=== PATIENT | female | born 1960 | race Caucasian/White ===

== ENCOUNTER 2018-02-19 06:17 | Observation (INO) | payer OTHER ==
[~2018-02-19] VITALS: Ht 165.1 cm; Wt 117.6 kg
[~2018-02-19 06:17] MED LIST: BUPR150T3 PO; CREON24 PO; CYCL10TA PO; GLIM1TAB PO; LABE100T2 PO; LISI40TA PO; METF500T4 PO; METO5TAB PO; PANT40TA3 PO; PRAV40TA2 PO; SERT-129 PO; SPIR25TA3 PO
[2018-02-19] MEDS ORDERED: METOPROLOL TARTRATE 25 MG TAB PO PRN (06:45)
[2018-02-19] MEDS ORDERED: CHLORHEXIDINE GLUCONATE 2 % 1 PACK (2 CLOTHS) TOPICAL PRN (06:45)
[2018-02-19] MEDS ORDERED: POVIDONE IODINE 5% (ANTISEPSIS KIT) 4 APPLICATIONS EACH NARE PRN (06:45)
[2018-02-19] MEDS ORDERED: LACTATED RINGER'S 1000 ML IV PRN (06:45)
[2018-02-19] MEDS ORDERED: SODIUM CHLORID 0.9% 500 ML IV PRN (06:45)
[2018-02-19] MEDS ORDERED: VANCOMYCIN 1 GM/200 ML PREMIX IV SCH (07:00)
[2018-02-19] MEDS ORDERED: GENTAMICIN SULFATE 80 MG/2 ML VIAL ONE (07:01)
[2018-02-19] MEDS ORDERED: THROMBIN (TOPICAL) 5,000 UNIT VIAL ONE (07:01)
[2018-02-19] MEDS ORDERED: GELFOAM SIZE 100 ONE (07:01)
[2018-02-19] MEDS ORDERED: APREPITANT 40 MG CAP ONE (07:10)
[2018-02-19] MEDS ORDERED: ACETAMINOPHEN 1000 MG/100 ML 100 ML IV ONE (07:13)
[2018-02-19] MEDS ORDERED: ARTIFICIAL TEARS OPTH OINT 3.5 APPLIC/3.5 GM TUBO ONE (07:13)
[2018-02-19] MEDS ORDERED: PROPOFOL 500 MG/50 ML INJ 150 ML ONE (07:13)
[2018-02-19] MEDS ORDERED: ceFAZolin 2 GM PREMIX 50 ML ONE (09:37)
[2018-02-19] MEDS ORDERED: MORPHINE SULFATE 4 MG/ML INJ IV PUSH PRN ×2 (11:15)
[2018-02-19] MEDS ORDERED: MAGNESIUM HYDROXIDE SUSP 30 ML CUP PO PRN (11:15)
[2018-02-19] MEDS ORDERED: ONDANSETRON ODT 4 MG TAB PO PRN (11:15)
[2018-02-19] MEDS ORDERED: RESP: ALBUTEROL 2.5 MG/3 ML NEB (PRN) INH (11:15)
[2018-02-19] MEDS ORDERED: MENTHOL LOZENGE BUCCAL PRN (11:15)
[2018-02-19] MEDS ORDERED: ACETAMINOPHEN 325 MG TAB PO PRN (11:15)
[2018-02-19] MEDS ORDERED: ACETAMINOPHEN/HYDROcodone 325 MG/10 MG TAB PO PRN (11:15)
[2018-02-19] MEDS ORDERED: cloNIDine HCL 0.1 MG TAB PO/NG PRN (11:15)
[2018-02-19] MEDS ORDERED: DEXAMETHASONE SOD PHOS 4 MG/ML VIAL IV ONE (12:00)
[2018-02-19] MEDS ORDERED: ROCURONIUM INJ 50 MG/5 ML SYRINGE IV PUSH ONE (12:00)
[2018-02-19] MEDS ORDERED: ePHEDrine/NS 25 MG/5 ML SYRINGE IV ONE (12:00)
[2018-02-19] MEDS ORDERED: PROPOFOL 200 MG/20 ML AMP IV ONE (12:00)
[2018-02-19] MEDS ORDERED: ONDANSETRON HCL 4 MG/2 ML VIAL IV ONE (12:00)
[2018-02-19] MEDS ORDERED: LIDOCAINE HCL 1% PF 5 ML SYRINGE OTHER ONE (12:00)
[2018-02-19] MEDS ORDERED: LACTATED RINGER'S 1000 ML INJ 2,000 ML IV ONE (12:00)
[2018-02-19] MEDS ORDERED: DO NOT ADM ANY ANTICOAGULANT DRUGS PRN (12:19)
[2018-02-19] MEDS ORDERED: HYDR-3583 PO (12:20)
[2018-02-19] MEDS: SODIUM CHLOR 0.9% 1000 ML INJ 1,000 ML IV SCH ×2 (12:30→21:13)
[2018-02-19] MEDS ORDERED: DEXTROSE 50% IN WATER 50 ML VIAL(D50) IV PUSH PRN (12:30)
[2018-02-19] MEDS ORDERED: GLUCAGON 1 MG/ML VIAL OTHER PRN (12:30)
[2018-02-19] MEDS ORDERED: MIDAZOLAM HCL 2 MG/2 ML VIAL ONE (12:46)
[2018-02-19] MEDS ORDERED: *morphine SULFATE 4 MG/ML PERIprocedure ONLY ONE (12:57)
--- NOTE | 2018-02-19 13:07 | PD.OP ---
Operative Report Date of Surgery: Feb 19, 2018 Preoperative Diagnosis: Cervical Spinal; Stenosis Postoperative Diagnosis: Cervical Spinal; Stenosis Procedure: C5-6 anterior cervical discectomy, interbody arthodhesis using PEEK cage filled with autologous bone graft, Simplicity plate and screws Anesthesia: general Surgeon: West Trammell Unemployment Insurance Hearing Officer(s): Vita Pierce Operation and Findings: INDICATIONS FOR THE PROCEDURE Ms Toledo is a 57 year-old female who presented with intractable neck pain and clinical evidence of C6 upper extremity radiculopathy. The patient has failed maximum nonsurgical management including multiple modalities of conservative treatment as well as pain management interventions by an interventional pain specialist. A surgical decompression and arthrodhesis were indicated. The [id number] details of the procedure, indications, alternatives, risks and potential complications were fully discussed with the patient. The patient fully understood. All The questions were answered. No guarantees were given. The patient voiced requesting the procedure and provided informed consents. The patient was offered the alternative of delaying the procedure and continuing with nonsurgical management. DETAILS OF THE SURGICAL PROCEDURE After the induction of general anesthesia, endotracheal intubation was performed. A Subramanian catheter, bilateral DEBORAH hose, and sequential compression devices were placed and kept throughout the procedure. The patient was positioned supine on a Lam table with the head over a gel doughnut. All pressure points were carefully padded with egg crate mattress. The eyes were tapped shut after ointment was applied by the anesthesiologist to prevent corneal abrasion. A Laurence hugger was placed over the exposed lower body to maintain control of the core body temperature. The electrophysiological team placed the needles and electrodes in their proper location and baseline SSEP's and motor evoked potentials were registered. The anterior cervical region was prepped and draped in the usual sterile fashion. A localizing x-ray was performed with a C-arm. The surgical procedure was performed in several steps as follow: SURGICAL APPROACH A skin incision was made along the middle cervical crease with a #10 blade. The dissection was carried out through the platysma exposing the sternocleidomastoid muscle. The cervical spine was approached following the fascial layers of the neck just medial to the anterior border of the sternocleidomastoid and carotid sheath by a combination of sharp and dull dissection. The omohyoid muscle was identified and carefully dissected laterally and the deep cervical fascia was carefully opened. The longus colli muscles were retracted to each side of the midline. A marker was placed at the disc space C5-6 and a cross-table lateral x-ray performed with a C-arm. SURGICAL DECOMPRESSION In order to decompress the anterior surface of the spinal cord it was necessary to preform a microsurgical resection of the disk. At this point in the procedure the operating microscope was draped in the usual sterile fashion and brought to the field. The rest of the surgical procedure was performed using microdissection technique with the exception of the closure. Under the operative microscopic, an anterior osteophytic spur was carefully removed using the leksell, and a self-retaining retractor was placed underneath the longus colli muscle. The annulus at C5-6 was incised with a #15 blade and microdiscectomy was then carefully carried out using angled curets and pituitary forceps. The patient had a posterior osteophytic/disk complex which was producing mass affect on the anterior surface of the dural sac. This was carefully drilled with a TPS drill and resected with a think foot plate 2mm kerrison under high magnification. The posterior longitudinal ligament was then elevated with an angled curet and incised with a 15 bladed knife. A careful ressection of the posterior longitudinal ligament was carried out using a thin footplate 2 mm Kerrison. The decompression was then carried out laterally , and a bilateral foraminotomy was performed with a 2mm thin foot Kerrison. Then the vertebral bodies above and below the disk space were undercut using a 2 mm thin foot Kerrison. The epidural space was the systematically assessed with a nerve hook in search for disk fragments. An excellent decompression was achieved in both, the dural sac and bilateral exiting nerve roots. The incision was then irrigated with a large amount of antibiotic solution INTERBODY ARTHRODHESIS In order to avoid collapse of the disk space which would result in bilateral foraminal stenosis, and to increase the chances of a successful fusion, it was necessary to place an interbody cage filled with autologous bone. At this point of the procedure, the superior and inferior endplates were then evenly decorticated with a TPS drill. The use of a drill in combination with a curette allowed me to systematically remove the cartilaginous endplates, exposing healthy bone for the interbody arthrodesis. forteen millimeters distraction pins were then placed at the vertebral bodies adjacent to the disk space, and gentle distraction was applied. The size of the interbody cage was then assessed using different size spacers, and a rasp was used to ensure no residual cartilage. A PEEK cage of the appropriate size was selected, and the interbody arthrodesis was then preformed by carefully impacting a PEEK cage filled with autologous bone graft to the disc space C5-6. An excellent position of the cage was achieved. This was was confirmed anatomically by feelling the space posterior to the implant and distance to the anterior surface of the dural sac. Radiological confirmation of the position was performed with a cross lateral xray performed with the C-arm. INTERNAL INSTRUMENTAL FIXATION Once that the interbody device was in an appropriate position, it was necessary to stabilize the spine with anterior instrumentation. Anterior instrumentation has demonstrated to increase the rate of fusion, accelerate the patient's recovery, and decrease the rate of failed interbody grafts. At this point of the procedure, the distance between the vertebral bodies was carefully measures, and a Simplicity plate was brought to the field and presented in front of the C5 and 6 vertebral bodies. Vending Machine Refiller holes were then drilled using the TPS drill, and the plate was then secured to the spine using self-drilling, self-tapping screws. Initially, the inferior right screw was inserted, followed by placement of the contra lateral upper screw. The remaining screws were sequentially placed in a contra-lateral fashion. A proper purchase was achieved with all screws and the position of the cage, plate and screws, and alignment of the spine was assessed anatomically by direct visualization, and radiologically by performing a cross lateral xray of the cervical spine with the C-arm. CLOSURE The incision was irrigated with several liters of antibiotic solution. Hemostasis was achieved with a bipolar. The screws were locked to prevent backing out. A 7 mm Lam-Sutton drain was left in the prevertebral space and externalized through a separate stab incision. The incision was then closed in layers. 3-0 Vicryl with interrupted sutures was used to close the platysma and subcutaneous tissue. The skin was closed with 4-0 running subcuticular Vicryl and Dermabond was applied to the skin. The drain was secured with a 3-0 nylon. At the end of the procedure the sponge, needle and instrument counts were all correct. The estimated blood loss was less than 80 cc. No blood transfusion was given. No intraoperative complications occurred. The patient received prophylactic antibiotics. The patient was then extubated and transferred to the recovery room in stable condition. West Trammell MD Feb 19, 2018 13:07
--- NOTE | 2018-02-19 14:22 | HHI.DCPOC ---
Discharge Care Plan Diagnosis: (1) Status post cervical arthrodesis Goals to Promote Your Health * To prevent worsening of your condition and complications * To maintain your health at the optimal level Directions to Meet Your Goals Take your medications as prescribed Follow your dietary instruction Follow activity as directed Keep your appointments as scheduled Take your immunizations and boosters as scheduled If your symptoms worsen call your PCP, if no PCP go to Urgent Care Center or Emergency Room Smoking is Dangerous to Your Health. Avoid second hand smoke Call the 24-hour hour crisis hotline for domestic abuse at Hali Harrison Feb 19, 2018 14:22
[2018-02-19 15:00] VITALS: BP 198/94; PULSE 89; RESP 18; TEMP 97.2; O2SAT 96
[2018-02-19] MEDS: DEXAMETHASONE SOD PHOS 4 MG/ML VIAL IV PUSH SCH ×2 (16:02→16:23)
[2018-02-19] MEDS: INSULIN ASPART SUPPLEMENTAL SCALE SQ SCH ×2 (17:00→21:47)
[2018-02-19] MEDS: LIPASE/PROTEASE/AMYLASE (24,000/76,000/120,000) CAP PO SCH (17:55)
[2018-02-19] MEDS: ceFAZolin 2 GM PREMIX 50 ML IV SCH (17:55)
[2018-02-19] MEDS: ACETAMINOPHEN/HYDROcodone 325 MG/10 MG TAB PO PRN (17:56)
--- NOTE | 2018-02-19 18:49 | RADRPT ---
EXAM DATE: 02/19/2018 6:33 PM EDT AGE/SEX: 57 years / Female INDICATIONS: Fusion C5,C6 with screws and plate placement. CLINICAL DATA: This is the patient's initial encounter. Patient reports that signs and symptoms have been present for 1 day and indicates a pain score of Nonresponsive. MEDICAL/SURGICAL HISTORY: None. None. COMPARISON: No prior exams available for comparison. FINDINGS: Single lateral spot film reveals plate and screw fixation across C5-6 with normal alignment. CONCLUSION: Fixation as above Electronically signed by: Enmanuel Rodriguez MD 02/19/2018 6:48 PM EDT
[2018-02-19 19:00] VITALS: BP 171/77; PULSE 97; RESP 18; TEMP 97.4; O2SAT 95
[2018-02-19] MEDS: DOCUSATE SODIUM 100 MG CAP PO SCH (21:09)
[2018-02-19] MEDS: CYCLOBENZAPRINE HCL 10 MG TAB PO PRN (21:09)
[2018-02-19] MEDS: LABETALOL HCL 100 MG TAB PO SCH (21:10)
[2018-02-19 23:44] VITALS: BP 148/56; PULSE 87; RESP 18; TEMP 97.4; O2SAT 96
[2018-02-20] MEDS: DEXAMETHASONE SOD PHOS 4 MG/ML VIAL IV PUSH SCH ×3 (01:13→11:15)
[2018-02-20] MEDS: ceFAZolin 2 GM PREMIX 50 ML IV SCH ×2 (01:37→09:19)
[2018-02-20 03:43] VITALS: BP 131/60; PULSE 78; RESP 18; TEMP 97.4; O2SAT 94
[2018-02-20] MEDS: SODIUM CHLOR 0.9% 1000 ML INJ 1,000 ML IV SCH (07:02)
[2018-02-20 08:00] VITALS: BP 139/59; PULSE 72; RESP 17; TEMP 97.3; O2SAT 93
[2018-02-20] MEDS ORDERED: buPROPion HCL 150 MG SUSTAINED RELEASE TAB PO SCH (09:00)
[2018-02-20] MEDS ORDERED: PANTOPRAZOLE SOD 40 MG DELAYED RELEASE TAB PO SCH (09:00)
[2018-02-20] MEDS ORDERED: PRAVASTATIN SOD 40 MG TAB PO SCH (09:00)
[2018-02-20] MEDS ORDERED: SPIRONOLACTONE/HCTZ 25 MG/25 MG TAB PO SCH (09:00)
[2018-02-20] MEDS ORDERED: LISINOPRIL 20 MG TAB PO SCH (09:00)
[2018-02-20] MEDS ORDERED: SERTRALINE HCL 100 MG TAB PO SCH (09:00)
[2018-02-20] MEDS: INSULIN ASPART SUPPLEMENTAL SCALE SQ SCH (09:17)
[2018-02-20] MEDS: DOCUSATE SODIUM 100 MG CAP PO SCH (09:18)
[2018-02-20] MEDS: LABETALOL HCL 100 MG TAB PO SCH (09:18)
[2018-02-20] MEDS: LIPASE/PROTEASE/AMYLASE (24,000/76,000/120,000) CAP PO SCH (09:19)
[2018-02-20] MEDS: ACETAMINOPHEN/HYDROcodone 325 MG/10 MG TAB PO PRN (09:20)
[2018-02-20] MEDS: CYCLOBENZAPRINE HCL 10 MG TAB PO PRN (09:20)
--- NOTE | 2018-02-20 10:11 | HHI.NSPN ---
History Chief Complaint: Mild incisional pain. Interval History 02/20: Pt s/p C5/C6 ACF with cervical plate placement. Pt states she is doing well. She has some discomfort radiating into right upper extremity lateral aspect to elbow. No paresthesias in UEs. Tolerating diet. Ambulating short distance. Review of Systems General: Negative for: fever, chills, insomnia Respiratory: Negative for: shortness of breath, cough, sputum Cardiovascular: Negative for: chest pain Gastrointestinal: Negative for: nausea, vomitting, diarrhea, constipation Exam Results Vital Signs Date Time Temp Pulse Resp B/P (MAP) Pulse Ox O2 Delivery O2 Flow Rate FiO2 02/20/18 03:43 97.4 78 18 131/60 (83) 94 02/19/18 13:30 Nasal Cannula 3 Intake and Output 02/20/18 02/20/18 02/21/18 08:00 16:00 00:00 Intake Total 480 ml Balance 480 ml Physical Examination General: Pt awake and alert sitting up n chair in NAD. Eyes: Pupils equal. Sclera anicteric. Resp: CTA bilaterally Heart: NSR no murmurs Abd: soft positive bs Skin: Incision clean and dry. DON drain in place. Muscle: Moves all 4 extremities well. Neuro: Pt awake and alert. Sitting up in chair. Pupils equal. Speech clear and appropriate. follows commands well. Lab, Micro, Other Results Last Impressions Cervical Spine X-Ray 02/19/18 0000 Signed Impressions: CONCLUSION: Fixation as above Medical Decision Making Impression and Plan A: 57 y/o FM s/p C5/C6 ACF with cervical plate placement. P: D/C DON drain. Orders already written to d/c home discussed restrictions. Hunter Hilliard Feb 20, 2018 10:11 am
[2018-02-20 10:20] VITALS: RESP 18
--- NOTE | 2018-02-20 16:13 | HHI.DS ---
Discharge Summary Admission Date Feb 19, 2018 at 13:49 Discharge Date: Feb 20, 2018 Admitting Diagnosis s/p ACDF (1) Status post cervical arthrodesis ICD Code: Z98.1 - Arthrodesis status Brief History Ms Toledo is a 57 year-old female who presented with intractable neck pain and clinical evidence of C6 upper extremity radiculopathy. The patient has failed maximum nonsurgical management including multiple modalities of conservative treatment as well as pain management interventions by an interventional pain specialist. A surgical decompression and arthrodhesis were indicated. Imaging Last Impressions Cervical Spine X-Ray 02/19/18 0000 Signed Impressions: CONCLUSION: Fixation as above Hospital Course Ms. Toledo underwent C5-6 anterior cervical discectomy, interbody arthrodesis using PEEK cage filled with autologous bone graft, Simplicity plate and screws Feb 19, 2018 for Cervical Spinal Stenosis. She is discharged home in stable conditions. Pt Condition on Discharge: Stable Discharge Disposition: Discharge Home Discharge Instructions DIET: Follow Instructions for: Heart Healthy Diet ADDITIONAL Diet Instructions: soft, and advance as tolerated ACTIVITIES You can perform: Weight Bearing As [place] ADDITIONAL Activity Instructio: Avoid strenuous activities, heavy lifting over 5 lbs, overhead activities, repetitive bending, twisting, pushing, pulling or any activities which might result in stress over the spine. Avoid situation that will put at risk for falls. Use assistive device as needed for walking. Wear cervical collar at all times, may remove only with meals. New Medications: Hydrocodone/Acetaminophen (Hydrocodone-Acetamin 10-325 mg) 10 Mg-325 Mg Tablet 1 TAB PO Q8HR PRN for PAIN SCALE 1 TO 10, #60 TAB 0 Refills Continued Medications: Bupropion HCl ER 24 HR (Bupropion HCl ER 24 HR) 150 Mg Tab 150 MG PO DAILY for Control Depression, TAB 0 Refills Cyclobenzaprine (Flexeril) 10 Mg Tab 10 MG PO TID PRN for MUSCLE SPASM, #90 TAB 0 Refills Glimepiride (Glimepiride) 1 Mg Tab 1 MG PO DAILY for Blood Sugar Management, #30 TAB 0 Refills Take with breakfast or first main meal Labetalol (Labetalol) 100 Mg Tab 100 MG PO BID for Blood Pressure Management, TAB 0 Refills Lisinopril (Lisinopril) 40 Mg Tab 40 MG PO DAILY for Blood Pressure Management, #30 TAB 0 Refills Metformin ER (Metformin ER) 500 Mg Nahomy 500 MG PO DAILY for Blood Sugar Management, TAB 0 Refills With evening meal Metoclopramide (Metoclopramide) 5 Mg Tab 5 MG PO TIDAC, TAB 0 Refills Pancrelipase (Creon) 24,000-76,000-120,000 Units Cap 1 CAP PO TIDPC for Digestive Aid, #90 CAP 0 Refills Pantoprazole (Pantoprazole) 40 Mg Tab 40 MG PO DAILY for Reflux, #30 TAB 0 Refills Pravastatin (Pravastatin) 40 Mg Tab 40 MG PO DAILY for Cholesterol Management, #30 TAB 0 Refills Sertraline (Sertraline) 100 Mg Tab 100 MG PO DAILY, #30 TAB 0 Refills Spironolactone-Hydrochlorothiazide (Spironolactone-Hydrochlorothiazide) 25-25 Mg Tab 1 TAB PO DAILY, #30 TAB 0 Refills Hali Harrison Feb 20, 2018 16:13
== END 2018-02-20 12:41 | disposition home or self-care (01) ==
LOC: HSDC 06:17 → N06B 13:49
PROVIDERS: ADMIT Neurological Surgery; ATTEND Neurological Surgery
DX: M50.10 Cervical disc disorder with radiculopathy, unspecified cervical region (principal); M48.02 Spinal stenosis, cervical region; I10 Essential (primary) hypertension; E78.5 Hyperlipidemia, unspecified; G47.33 Obstructive sleep apnea (adult) (pediatric); Z72.0 Tobacco use; Z79.84 Long term (current) use of oral hypoglycemic drugs
CPT/HCPCS: 00600; 20936; 22551; 22845; 22853; 72040; 96365; 96366; 96372; 96375; 97161; C1713; G0378; G8987; G8988; J0131; J0690; J1100; J1580; J1815; J2250; J2270; J2405; J3010; J3370; J7030; J7120; J8501